=== PATIENT | male | born 1995 | race Asian ===

== ENCOUNTER 2017-01-09 11:04 | Emergency (ER) | payer OTHER ==
[~2017-01-09] VITALS: Ht 172.7 cm; Wt 63.8 kg
[2017-01-09 11:20] VITALS: TEMP 36.8; O2SAT 98; Ht 172.7 cm; Wt 63.8 kg
[2017-01-09 11:58] LABS: BASO % 0.5 %; BASO ABS # 0.03 K/uL (0-0.2); COMPLETE YES; IG% 0.2 %; LYMPH % 36.4 %; MEAN CELL VOLUME 85.4 fL (80-100); MEAN CORPUSCULAR HEMOGLOBIN 29.1 pg (25-34); MEAN PLATELET VOLUME 8.9 fL (7.4-10.4); MONO % 5.2 %; NEUT % 55.7 %; PLATELET COUNT 222 K/uL (130-400); RED BLOOD COUNT 4.92 M/uL (4.7-6.1)
[2017-01-09 12:13] LABS: BUN/CREATININE RATIO 8.4 (10-20); CALCIUM 9.1 mg/dl (8.5-10.1); CREATININE 1.3 mg/dl (0.60-1.40); POTASSIUM 4.2 mmol/L (3.5-5.1)
[2017-01-09] MEDS ORDERED: SODIUM CHLORIDE 0.9% 1000ML 1,000 ML IV STA (12:17)
--- NOTE | 2017-01-09 12:19 | DIAGNOSTIC IMAGING REPORT ---
CHEST ONE VIEW PORTABLE CLINICAL HISTORY: SYNCOPE dyspnea COMPARISON STUDY: No previous studies for comparison. FINDINGS: The bones soft tissues and hemidiaphragms are normal. The cardiomediastinal silhouette is normal. The lungs are clear. The pulmonary vasculature is normal. IMPRESSION: Negative chest. Electronically signed by: Elkin Snyder M.D. 01/09/2017 12:17 PM Dictated Date/Time: 01/09/2017 12:16 PM
[2017-01-09 12:24] LABS: ALB/GLOB RATIO 1.4 (0.9-2); CKMB/CK RATIO 0.5 (0-3.0); THYROID STIMULATING HORMONE 0.615 uIu/ml (0.300-4.500)
[2017-01-09 13:09] VITALS: PULSE 56
[2017-01-09 13:31] VITALS: BP 95/73; O2SAT 97
--- NOTE | 2017-01-09 14:25 | EMERGENCY ROOM VISIT NOTE ---
History Report prepared by Frankyibolivia: Gris Robison Under the Supervision of: Dr. Alden Schwartz M.D. First contact with patient: 12:12 Chief Complaint: SYNCOPE Stated Complaint: SYNCOPE Nursing Triage Summary: Patient arrives via ALS with complaints of syncopal episode. Patient is an employee at the [employer] on campus and states he passed out about 3 times about 2 hours ago. He has superficial cut on left hand and the patient believes the cut may have initiated the syncopal episode. History of Present Illness The patient is a 21 year old male who presents to the Emergency Room via ALS with complaints of a syncopal episode that occurred this morning. The patient's boss recently requested that the patient start arriving to work earlier. While at work in [place], he started to feel lightheaded and slightly short of breath and passed out. He denies hitting his head or any injuries after the episode. He believes that he passed out due to his irregular schedule and not getting enough sleep. He has had one syncopal episode in the past which was related to anemia. He reports drinking a large cup of water and eating a [employer] scone not long before passing out. Currently, he feels fatigued. Denies chest pain, cough, vomiting, fever, or other complaints. Source of History: patient Onset: this morning Position: other (global) Quality: other (syncope) Timing: other (episode) Associated Symptoms: + SOB, + fatigue, No chest pain, No cough, No fevers, No vomiting Note: Other symptoms: lightheadedness Review of Systems See HPI for pertinent positives & negatives. A total of 10 systems reviewed and were otherwise negative. Past Medical & Surgical Medical Problems: (1) Anemia Family History No pertinent family history stated. Social History Smoking Status: Never Smoker Occupation Status: employed Current/Historical Medications No Active Prescriptions or Reported Meds Allergies Coded Allergies: No Known Allergies (Unverified , 01/09/17) Physical Exam Vital Signs Date Time Temp Pulse Resp B/P Pulse Ox O2 Delivery O2 Flow Rate FiO2 01/09/17 13:31 95/73 97 Room Air 01/09/17 13:09 56 16 107/76 98 Room Air 01/09/17 12:29 48 18 108/84 97 Room Air 01/09/17 11:29 55 01/09/17 11:20 98 Room Air 01/09/17 11:20 36.8 56 18 113/69 98 Room Air 103/71 109/73 01/09/17 11:20 36.8 56 18 113/69 98 Room Air Physical Exam GENERAL: Patient is sleepy but in no acute distress. HEENT: No acute trauma, normocephalic atraumatic, mucous membranes moist, no nasal congestion, no scleral icterus. NECK: No stridor, no adenopathy, no meningismus, trachea is midline. LUNGS: Clear to auscultation bilaterally, no wheeze, no rhonchi, breath sounds equal. HEART: Without murmurs gallops or rubs, regular rate and rhythm. ABDOMEN: Soft, nontender, bowel sounds positive, no hernias, no peritonitis. EXTREMITIES: No cyanosis or edema, full range of motion of all the joints without pain or difficulty, no signs for acute trauma. NEUROLOGIC: Oriented x 3, no acute motor or sensory deficits, no focal weakness. SKIN: No rash, no jaundice, no diaphoresis. Medical Decision & Procedures ER Provider Diagnostic Interpretation: Orthostatic vital signs are negative. Radiology results and stated below per my review and radiologist interpretation: CHEST ONE VIEW PORTABLE CLINICAL HISTORY: SYNCOPE dyspnea COMPARISON STUDY: No previous studies for comparison. FINDINGS: The bones soft tissues and hemidiaphragms are normal. The cardiomediastinal silhouette is normal. The lungs are clear. The pulmonary vasculature is normal. IMPRESSION: Negative chest. Electronically signed by: Elkin Snyder M.D. 01/09/2017 12:17 PM Dictated Date/Time: 01/09/2017 12:16 PM Laboratory Results 01/09/17 11:45 Red Blood Count 4.92, Mean Corpuscular Volume 85.4, Mean Corpuscular Hemoglobin 29.1, Mean Corpuscular Hemoglobin Concent 34.0, Mean Platelet Volume 8.9, Neutrophils (%) (Auto) 55.7, Lymphocytes (%) (Auto) 36.4, Monocytes (%) (Auto) 5.2, Eosinophils (%) (Auto) 2.0, Basophils (%) (Auto) 0.5, Neutrophils # (Auto) 3.69, Lymphocytes # (Auto) 2.40, Monocytes # (Auto) 0.34, Eosinophils # (Auto) 0.13, Basophils # (Auto) 0.03 01/09/17 11:45 Test 01/09/17 11:45 01/09/17 12:16 White Blood Count 6.60 K/uL (4.8-10.8) Red Blood Count 4.92 M/uL (4.7-6.1) Hemoglobin 14.3 g/dL (14.0-18.0) Hematocrit 42.0 % (42-52) Mean Corpuscular Volume 85.4 fL (80-100) Mean Corpuscular Hemoglobin 29.1 pg (25-34) Mean Corpuscular Hemoglobin Concent 34.0 g/dl (32-36) Platelet Count 222 K/uL (130-400) Mean Platelet Volume 8.9 fL (7.4-10.4) Neutrophils (%) (Auto) 55.7 % Lymphocytes (%) (Auto) 36.4 % Monocytes (%) (Auto) 5.2 % Eosinophils (%) (Auto) 2.0 % Basophils (%) (Auto) 0.5 % Neutrophils # (Auto) 3.69 K/uL (1.4-6.5) Lymphocytes # (Auto) 2.40 K/uL (1.2-3.4) Monocytes # (Auto) 0.34 K/uL (0.11-0.59) Eosinophils # (Auto) 0.13 K/uL (0-0.5) Basophils # (Auto) 0.03 K/uL (0-0.2) RDW Standard Deviation 39.0 fL (36.4-46.3) RDW Coefficient of Variation 12.6 % (11.5-14.5) Immature Granulocyte % (Auto) 0.2 % Immature Granulocyte # (Auto) 0.01 K/uL (0.00-0.02) Anion Gap 6.0 mmol/L (3-11) Est Creatinine Clear Calc Drug Dose 82.5 ml/min Estimated GFR () 91.7 Estimated GFR (Non- 79.1 BUN/Creatinine Ratio 8.4 (10-20) Calcium Level 9.1 mg/dl (8.5-10.1) Total Bilirubin 0.5 mg/dl (0.2-1) Aspartate Amino Transf (AST/SGOT) 11 U/L (15-37) Alanine Aminotransferase (ALT/SGPT) 14 U/L (12-78) Alkaline Phosphatase 64 U/L (45-117) Total Creatine Kinase 103 U/L (39-308) Creatine Kinase MB 0.5 ng/ml (0.5-3.6) Creatine Kinase MB Ratio 0.5 (0-3.0) Total Protein 7.0 gm/dl (6.4-8.2) Albumin 4.1 gm/dl (3.4-5.0) Globulin 2.9 gm/dl (2.5-4.0) Albumin/Globulin Ratio 1.4 (0.9-2) Thyroid Stimulating Hormone (TSH) 0.615 uIu/ml (0.300-4.500) Bedside Troponin I 0.000 ng/ml (0-0.045) Laboratory results reviewed by me. Medications Administered Medications (Trade) Dose Ordered Sig/Analilia Route Start Time Stop Time Status Last Admin Dose Admin Sodium Chloride (Nss 1000ml) 1,000 ml @ 999 mls/hr Q1H1M STAT IV 01/09/17 12:17 01/09/17 13:17 DC 01/09/17 12:29 999 MLS/HR ECG Indication: syncope Rate (beats per minute): 50 Rhythm: sinus bradycardia Findings: no acute ischemic change, no ectopy ED Course 1216: The patient was evaluated in room C12. A complete history and physical exam was performed. 1217: Ordered NSS 1000 ml @ 999 mls/hr IV. 1330: Reevaluated the patient. He is feeling better. Discussed results and discharge instructions: He verbalized understanding and agreement. The patient is ready for discharge. Medical Decision Differential includes but is not limited to fatigue, dehydration, anemia, electrolyte imbalance, dysrhythmia, generalized infection. There is no leukocytosis or concerning anemia. No significant electrolyte abnormality, kidney failure, hepatitis. The patient appears to be in a euthyroid state. EKG shows a sinus bradycardia, no acute ischemia, no concerning rhythm issues. Chest x-ray does not show mediastinal widening, pneumonia or cardiomegaly. Orthostatic vital signs were negative. Cardiac enzyme testing is not suggestive of acute cardiac injury. The patient seemed sleepy on exam but otherwise examines normally. He was given IV saline. He has done well, he feels better and is ready for discharge. He was encouraged to sleep properly and to stay well-hydrated. He may need to adjust his work schedule to allow for better sleep. He understands. The patient was encouraged to return for worsening symptoms. I suspect his syncope today was secondary to fatigue and possibly dehydration. Impression Primary Impression: Syncope Additional Impressions: Fatigue Dehydration Scribe Attestation The scribe's documentation has been prepared under my direction and personally reviewed by me in its entirety. I confirm that the note above accurately reflects all work, treatment, procedures, and medical decision making performed by me. Departure Information Dispostion Home / Self-Care Prescriptions No Active Prescriptions or Reported Meds Forms HOME CARE DOCUMENTATION FORM, IMPORTANT VISIT INFORMATION Patient Instructions My [facility] Additional Instructions proper sleep stay well hydrated eat regular meals return if worsening lab testing and imaging was all ok Problem Qualifiers
== END 2017-01-09 13:47 | disposition home or self-care (01) ==
LOC: EDBD 11:04 → C.EDC 11:06
DX: R55 Syncope and collapse (principal); R53.83 Other fatigue; E86.0 Dehydration; R00.1 Bradycardia, unspecified; D64.9 Anemia, unspecified